=== PATIENT | female | born 1985 | race Caucasian/White ===

== ENCOUNTER → 2016-08-08 | Outpatient (REF) | payer MEDICARE, MEDICAID ==
[2016-08-11 00:07] LABS: TOPIRAMATE LEVEL 4.8 ug/mL (2.0-25.0)
== END ==
LOC: M LABNEURO 17:14
PROVIDERS: ATTEND Physician Assistant Medical
DX: R56.9 Unspecified convulsions (principal)

== ENCOUNTER → 2019-04-12 | Outpatient (CLI) | payer MEDICARE, MEDICAID ==
[2019-04-12 16:30] LABS: BASO # 0.1 10^3/uL (0.0-0.2); BASO % 0.7 % (0.0-1.0); EOS # 0.2 10^3/uL (0.0-0.5); EOS % 2.8 % (0.0-3.0); HEMOGLOBIN 15.2 g/dl (12.0-15.5); LYMPH # 3.3 10^3/uL (1.5-5.0); MEAN CORPUSCULAR HEMOGLOBIN 28.5 pg (27.0-33.0); MEAN CORPUSCULAR HGB CONC 32.3 g/dl (32.0-36.5); MEAN CORPUSCULAR VOLUME 88.2 fl (80.0-96.0); MONO # 0.6 10^3/uL (0.0-0.8); MONO % 6.5 % (0.0-5.0); NEUTROPHILS # 4.4 10^3/uL (1.5-8.5); NEUTROPHILS % 51.7 % (36.0-66.0); PLATELET COUNT, AUTOMATED 304 10^3/uL (150-450); RED BLOOD COUNT 5.33 10^6/uL (4.00-5.40); WHITE BLOOD COUNT 8.6 10^3/uL (4.0-10.0)
[2019-04-12 16:48] LABS: HEMOGLOBIN A1c 5.4 %
[2019-04-12 17:05] LABS: ALBUMIN 3.8 GM/DL (3.2-5.2); ALT/SGPT 25 U/L (12-78); BILIRUBIN,TOTAL 0.5 MG/DL (0.2-1.0); BLOOD UREA NITROGEN 17 MG/DL (7-18); CARBON DIOXIDE LEVEL 22 MEQ/L (21-32); CHLORIDE LEVEL 109 MEQ/L (98-107); CHOLESTEROL LEVEL 180 MG/DL (<200); CHOLESTEROL RISK RATIO 4.186 (<5); CREATININE FOR GFR 0.78 MG/DL (0.55-1.30); GLOMERULAR FILTRATION RATE > 60.0 (>60); GLUCOSE, FASTING 84 MG/DL (70-100); HDL CHOLESTEROL 43 MG/DL (>40); LDL CHOLESTEROL 107 MG/DL (<100); NON-HDL-C 137 MG/DL; POTASSIUM SERUM 4.1 MEQ/L (3.5-5.1); SODIUM LEVEL 139 MEQ/L (136-145); TOTAL PROTEIN 7.6 GM/DL (6.4-8.2); TRIGLYCERIDES LEVEL 152 MG/DL (<150)
== END ==
LOC: M LAB 15:39
PROVIDERS: ATTEND Psychiatry & Neurology Child & Adolescent Psychiatry
DX: F31.9 Bipolar disorder, unspecified (principal); Z79.899 Other long term (current) drug therapy
CPT/HCPCS: 36415; 80053; 80061; 80307; 83036; 83525; 84439; 84443; 85025; G0480

== ENCOUNTER 2020-11-12 21:39 | Emergency (ER) | payer MEDICARE, MEDICAID ==
[~2020-11-12] VITALS: Ht 170.2 cm; Wt 147.3 kg
[2020-11-12] MEDS ORDERED: BENZ-52 (22:05)
[2020-11-12] MEDS ORDERED: HALO1TAB19 (22:05)
[2020-11-12] MEDS ORDERED: LORA2TAB14 (22:05)
[2020-11-12] MEDS ORDERED: RIZA10TA58 (22:05)
[2020-11-12] MEDS ORDERED: PANT40TA29 (22:05)
[2020-11-12] MEDS ORDERED: BACL10TA2 (22:05)
[2020-11-12] MEDS ORDERED: QUET100T2 (22:05)
[2020-11-12] MEDS ORDERED: TOPA200T7 (22:05)
[2020-11-12] MEDS ORDERED: MONT10TA10 (22:05)
[2020-11-12] MEDS ORDERED: TRAZ300T2 (22:05)
[2020-11-12] MEDS ORDERED: REST0.05 (22:05)
[2020-11-12] MEDS ORDERED: CETI-24 (22:05)
[2020-11-12 22:14] VITALS: BP 132/78
== END 2020-11-12 23:25 | disposition home or self-care (01) ==
LOC: M ED 21:39
DX: F41.9 Anxiety disorder, unspecified (principal); F32.9 Major depressive disorder, single episode, unspecified; K21.9 Gastro-esophageal reflux disease without esophagitis; Z88.0 Allergy status to penicillin; Z88.8 Allergy status to other drugs, medicaments and biological substances

== ENCOUNTER → 2022-07-01 | Outpatient (CLI) | payer MEDICARE, MEDICAID ==
[~2022-07-01] MED LIST: BACL10TA2; BENZ1TAB5; CETI-24; HALO1TAB19; LORA2TAB14; MONT10TA97; PANT40TA29; QUET100T2; REST0.05; RIZA10TA58; TOPA200T7; TRAZ300T2
== END ==
LOC: M WUC 09:41
PROVIDERS: ATTEND Physician Assistant Medical
DX: M25.572 Pain in left ankle and joints of left foot (principal)

== ENCOUNTER → 2023-08-09 | Outpatient (CLI) | payer MEDICARE, MEDICAID | LOC: M WUC 12:50 | PROVIDERS: ATTEND Nurse Practitioner Family | DX: M25.561 Pain in right knee (principal); Z91.81 History of falling; M17.11 Unilateral primary osteoarthritis, right knee ==

== ENCOUNTER → 2025-01-24 | Outpatient (CLI) | payer MEDICARE, MEDICAID | LOC: M WUC 12:32 | PROVIDERS: ATTEND Student in an Organized Health Care Education/Training Program | DX: M25.572 Pain in left ankle and joints of left foot (principal) ==